=== PATIENT | female | born 1975 | race Caucasian/White ===

== ENCOUNTER → 2019-04-24 | Day surgery (SDC) | payer OTHER ==
[~2019-04-24] MED LIST: 0.9 % SODIUM CHLORIDE 10 ML VIAL IVP ONE; ACETAMINOPHEN 1,000 MG/100 ML BTL IVPB ONE; FAMOTIDINE 20MG TABLET PO ONE; FENTANYL PF 100MCG/2ML VIAL IV ONE; KETOROLAC 30 MG/ML VIAL IVP ONE; LIDOCAINE 2% MDV (20MG/ML) 20ML VIAL IV ONE; METOCLOPRAMIDE 10 MG TABLET PO ONE; MIDAZOLAM HCL 2MG/2ML VIAL IV ONE; MORPHINE SULFATE 5 MG/ML VIAL IVP ONE; ONDANSETRON HCL IV 4 MG/2 ML VIAL IVP ONE; PROMETHAZINE HCL 12.5 MG in 0.9 % SODIUM CHLORIDE 100ML 100 ML IVPB ONE; PROPOFOL 10 MG/ML VIAL IV ONE; RINGERS SOLUTION,LACTATED 1,000 ML IV ONE; SCOPOLAMINE 1 PATCH TDSY TD ONE; SEVOFLURANE 250 ML INH ONE
[2019-04-24] MEDS: MORPHINE SULFATE (PACU ONLY) 4 MG/ML VIAL IVP PRN ×2 (09:46→09:52)
--- NOTE | 2019-04-24 13:56 | Operative Note ---
DATE OF SURGERY: 04/24/2019 SURGEON: Fan Bautista D.O. REFERRING PHYSICIAN: Natacha Gonsales D.O. PREOPERATIVE DIAGNOSIS: 1. 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 2. SYNOVITIS RADIAL HUMERAL JOINT LEFT ELBOW. POSTOPERATIVE DIAGNOSIS: 1. 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 2. SYNOVITIS RADIAL HUMERAL JOINT LEFT ELBOW. OPERATION: 1. RELEASE CONJOINED TENDON AND EPICONDYLECTOMY OF THE LEFT ELBOW. 2. ARTHROTOMY AND PARTIAL SYNOVECTOMY OF THE RADIAL HUMERAL JOINT LEFT ELBOW. DESCRIPTION: This 44-year-old female was taken to the Operating Room and placed in the supine position on the operating room table. General anesthesia was induced and the left upper extremity was elevated. It was prepped with Hibiclens and draped in the usual sterile fashion. It was exsanguinated and the tourniquet inflated to 250 mmHg. A curvilinear incision was made 1 cm over the lateral humeral epicondyle of the left elbow and dissection was carried down through the skin and subcutaneous tissue. Hemostasis was obtained with electrocautery. A conjoined tendon was easily identified and a "U" incision was made around the tendon and around the posterior aspect of the lateral epicondyle and the tendon was elevated subperiosteally and from the joint capsule and peeled back to separate the two. An arthrotomy incision was then made and hypertrophy of the synovium of the radiohumeral joint was present and a partial synovectomy was performed. The articular cartilage of the radiohumeral joint appeared entirely normal. This joint was irrigated with lactated Ringer's solution. An osteotome was used to partially excise the lateral humeral epicondyle, some spur formation was noted within the attachment site of the tendon , this was removed and a rasp was used to smooth the cut surface of bone. It was copiously irrigated with lactated Ringer's solution. We then reapproximated the tendon over the arthrotomy defect and sutured circumferentially in a U shaped fashion with 3-0 Vicryl to approximate to the cut surface of the lateral humeral epicondyle. Once this had been completed the subcutaneous tissue was closed with 3-0 Vicryl and the skin was closed with running 4-0 nylon sutures. Steriles dressings were applied. Plaster splint immobilization was applied. The patient was taken to the Recovery Room in satisfactory condition. JOB NUMBER: [id number] MTDD
== END | disposition home or self-care (01) ==
LOC: SUR 06:47
PROVIDERS: ATTEND Orthopaedic Surgery
DX: M77.12 Lateral epicondylitis, left elbow (principal); M65.9 Synovitis and tenosynovitis, unspecified; I10 Essential (primary) hypertension; E78.00 Pure hypercholesterolemia, unspecified; K21.9 Gastro-esophageal reflux disease without esophagitis
CPT/HCPCS: 24357; 24359; 24102; 01710; J1885; J2405; J3010; J2270; J2550; J7120